=== PATIENT | female | born 1995 | race Caucasian/White ===

== ENCOUNTER 2017-05-24 20:04 | Emergency (ER) | payer OTHER ==
--- NOTE | 2017-05-24 20:54 | ER ---
Nurse's Notes [facility] Name: Natalie Block Age: 21 yrs Sex: Female : 1995 Arrival Date: 05/24/2017 Time: 20:05 Bed 6 Private MD: Diagnosis: Presentation: 05/24 20:29 Presenting complaint: Patient states: Left flank pain that started while patient was aj walking 40 min TRIPOLER. Patient reports being 10 weeks and denies vaginal bleeding. Reports pain occurs with movement. Transition of care: patient was not received from another setting of care. Onset of symptoms was May 24, 2017. Care prior to arrival: None. 20:29 Method Of Arrival: EMS: [facility] 20:29 Acuity: LIT 3 aj Triage Assessment: 20:30 General: Appears in no apparent distress. comfortable, Behavior is calm, cooperative, aj appropriate for age. Pain: Complains of pain in posterior aspect of left lateral abdomen and anterior aspect of left lateral abdomen Pain currently is 0 out of 10 on a pain scale. at worst was 10 out of 10 on a pain scale. Neuro: Level of Consciousness is awake, alert, obeys commands, Oriented to person, place, time, situation. Respiratory: Airway is patent Respiratory effort is even, unlabored, Respiratory pattern is regular, symmetrical. GI: Abdomen is flat, non-distended. : Reports pain in left flank(s), Denies vaginal bleeding. Derm: Skin is intact, is healthy with good turgor, Skin is pink, warm \T\ dry. normal. 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 - Social history:: Smoking status: Patient/guardian denies using tobacco. Screenin:52 Abuse screen: Denies threats or abuse. Denies injuries from another. Nutritional ak1 screening: No deficits noted. Tuberculosis screening: No symptoms or risk factors identified. Fall Risk None identified. Assessment: 20:51 Reassessment: pt states she is unable to stay has to pick her kids up by 2200 in bb [place]ar instructed pt to return if symptoms change or worsen, pt states she is still having abdominal cramping but denies vaginal bleeding. Vital Signs: 20:30 BP 105 / 57; Pulse 66; Resp 19; Temp 97.6; Pulse Ox 99% on R/A; Weight 58.51 kg; Height aj 5 ft. 5 in. (165.10 cm); Pain 0/10; 20:30 Body Mass Index 21.47 (58.51 kg, 165.10 cm) ED Course: 20:05 Patient arrived in ED. ds1 20:30 Triage completed. aj 20:30 Arm band placed on right wrist. Patient placed in waiting room, Patient notified of wait time. 20:49 Sriram Luis PA is PHCP. cp 20:49 Jerome Flores MD is Attending Physician. cp 20:52 Morenita Alarcon, RN is Primary Nurse. ak1 20:52 Patient has correct armband on for positive identification. Bed in low position. Call ak1 light in reach. Side rails up X 1. Pulse ox on. NIBP on. Administered Medications: No medications were administered Outcome: 20:53 Patient left the ED. bb Signatures: Myah Ortiz, RN RN Val Chong ds1 Iram Ramos RN RN bb Morenita Alarcon, RN RN ak1 Sriram Luis PA PA cp
[2017-05-24 21:13] VITALS: BP 105/57; TEMP 97.6; O2SAT 99
== END 2017-05-24 20:53 | disposition left against medical advice (07) ==
LOC: ER 20:04
DX: Z53.21 Procedure and treatment not carried out due to patient leaving prior to being seen by health care provider (principal); Z3A.10 10 weeks gestation of pregnancy
CPT/HCPCS: 99283